=== PATIENT | male | born 1950 | race Caucasian/White ===

== ENCOUNTER → 2017-06-10 | Outpatient (CLI) | payer MEDICARE, OTHER ==
--- NOTE | 2017-06-10 10:10 | RADIOLOGY REPORT (SQ) ---
EXAM DESCRIPTION: DAVID SWALLOW COMPLETED DATE/TIME: 06/10/2017 8:33 am REASON FOR STUDY: DYSPHAGIA (R13.10) R13.10 DYSPHAGIA, UNSPECIFIED COMPARISON: None. TECHNIQUE: Videofluoroscopic swallowing examination was performed in conjunction with speech patholo gy. Videofluoroscopic imaging was obtained and reviewed and these are the findings: RADIATION DOSE: Fluoro time 2.25 minutes 1 images saved to PACS. LIMITATIONS: None FINDINGS: The patient was brought into the fluoro room and placed upright on a modified barium swall ow chair. The patient was then given multiple consistencies mixed with barium to swallow under live fluoroscopic video guidance. According to the Speech Pathologist there was deep laryngeal penetratio n with eventual aspiration identified with thin, nectar thick and pureed consistencies. There is a l ack of epiglottic inversion noted throughout the study. Please refer to the speech pathology report f or further details. IMPRESSION: ASPIRATION SEEN WITH THIN, NECTAR AND PUREED CONSISTENCIES.PLEASE SEE SPEECH PATHOLOGIST REPORT FOR OTHER FINDINGS AND RECOMMENDATIONS. COMMENT: NONE Quality ID 145: Final reports for procedures using fluoroscopy that document radiation exposure saulo gracie, or exposure time and number of fluorographic images (if radiation exposure indices are not avail able) TECHNICAL DOCUMENTATION: JOB ID: [id number] [employer]- All Rights Reserved
--- NOTE | 2017-06-11 12:02 | ST Modified Barium Swallow ---
Recommendation - Recommendations Recommendations: Patient may need alternative means of nutrition/hydration. Discussed possible need for PEG placement with patient and family. Recommend outpatient speech therapy evaluation and treatment for pharyngeal dysphagia. Recommend GI consult due to reduced UES opening. Recommend neurology consult. Medical Diagnoses - Medical Diagnoses Medical Diagnosis Description & ICD-10 Code(s): dysphagia R13.10 Other Medical Diagnoses/Co-Morbidities: Patient's spouse reports history of TIAs , colon cancer in 2013, esophageal dilation 2016. ST Modified Barium Swallow - General Date: 06/10/17 Referring Physician: Dr. Morataya Risks/Precautions: Aspiration - History History obtained from: Patient, Spouse -: Medical - Patient's was present and acted as primary historian. Reports that the patient had a fall in September of 2016, which resulted in some cognitive changes. also reports getting a flu/virus in January of 2017, and swallowing deficits were noted after that time. Patient reportedly is demonstrating significant coughing with solids specifically. He is currently on a puree solids and thin liquids. Patient has lost 20 pounds over last 6 months. Esophageal abnormalities were reported in physician paperwork, patient reports a dilation in January of 2017. also reports having 4 biopsies taken, no results known at this time, unable to state what biopsies were for. Medications: Patient reports baby aspirin Allergies: none reported - Functional Status Prior Functional Status: INDEPENDENT: feeding - independent Current Functional Limitations: feeding - modified diet - Subjective Patient/caregiver goal(s): better swallow, safe swallow Cognitive-Linguistic Function: Moderately Impaired Speech Intelligibility: WNL Current Nutritional Means: PO Current PO diet: Pureed Current symptoms: Weight loss, Coughing Pain: Patient reports, 0/5 - Objective Assessment: Upright, Left Lateral - Food Trials Used Food trials used: Thin liquids, [place] thick liquids, Pureed The patient: Was Able to Self Feed - Oral-Motor Skills Dentition: Full Laryngeal Function: Volitional Cough - WFL, Volitional Swallow - WFL - Assessment Oral prep: Normal Labial closure: Adequate Leakage: None Mastication: no chewing observed Lingual Movement: Normal Oral stage: Normal for this Procedure - Pharyngeal Stage Initiation of Pharyngeal Stage Reflex: Normal Decreased laryngeal elevation: Yes Reduced Velopharyngeal Closure: no Reduced pressure generation: Yes reduced tongue-based retraction: No Pre-swallow pooling in valleculae: None Pre-Swallow pooling in pyriforms: Moderate Reduced Thyro-Hyoid approximation: Yes Reduced epiglottic excursion: Yes - no epiglottic inversion seen Multiple Swallows with: Ineffective Clearance - piecemeal swallowing seen Post-swallow residulas vallecular: Mild Post-Swallow residuals in pyriforms: Significant Pharyngeal Stage Comments: Patient did not demonstrate epiglottic inversion, resulting in reduced airway protection. Liquids were seen to enter airway during the swallow, and pyriform sinus residue of solids seen to enter airway after the swallow. No cough reflex noted. Required multiple swallows to clear residue, however, only very small amounts of residue was seen to pass upper esophageal sphincter with each swallow. - Esophageal Stage Upper Esophageal Transit: Impaired - inadequate opening of UES, resulting in significant residue in pyriform sinus. Small amounts of residue able to pass with each swallow. - Fall Risk Assessment Medications/Conditions that increase fall risks include: Antidepressants, sedatives, anti-arrhythmic, diuretic, benzodiazipenes, neuroleptics. BP regulation problems, cardiac problems, balance or gait deficits, neurological problems. Fall Risk Actions Taken: No action needed - Behavioral Observations During evaluation process patient: was pleasant, was cooperative - Treatment / Educational Needs: Treatment/Education Needs: Treatment consisted of patient education on the role of the Speech Pathologist. Patient's plan of care and golas were communicated as well as scheduling and attendance policies. Recommendations for initial home program were shared. Patient demonstrated understanding and verbalized agreement. Initial home program recommendations: Discussed outpatient treatment with patient and spouse at evaluation to try to increase swallow function. Also discussed the possible need for a feeding tube due to presence of aspiration and significant weight loss. Safest diet is the one the patient is currently on (thin liquids and puree solids), however, patient is still aspirating these textures. - Impression/Summary Consistency: Thin, [place], Pudding Tracheal Aspiration: yes, deep, silent, during swallow - with thin liquids, after swallow - with puree and thickened liquids Effective Clearing: partial clearing Patient presents with: Pharyngeal stage dysph., Esophageal stage dysph., Severe Risk of Aspiration: Severe Risk of nutritional compromise: Severe Evaluation and Findings: Patient presents with severely impaired pharyngeal phase swallow characterized by absent epiglottic inversion and silent aspiration of all trial consistencies. Esophageal dysphagia also present characterized by reduced UES opening, resulting in significant pyriform sinus residue. Aspiration seen of all trial textures (thin, nectar, puree). Recommend outpatient dysphagia evaluation and treatment to address pharyngeal deficits. Recommend GI consult due to limited UES opening. Recommend neurology consult due to possible neurological component. - Recommendations NPO: yes Solid diet recommendations: Pureed - for pleasure feeds and therapeutic trials Liquid Diet Modification: Thin - for pleasure feeds and therapeutic trials Strict aspiration precautions: Yes Pt/Family education and followup with MD: Yes Dysphagia therapy with INSTRUMENT MAKER APPRENTICE: dysphagia therapy Reflux Precautions: Taught to Patient, Taught to Family Recommended techniques: Fully Upright During Meal, Small Bites and Sips Information, Precautions and Recommendations: Patient (Written), Patient (Verbal ), Family Member (Written), Family Member (Verbal) - Time Total Time: 30 - Plan of Care Patient to follow-up with referring physician: Yes Rehab potential for established goals: Fair POC Procedures/Codes: therapeutic trials, NMES, laryngeal exercises - for improved elevation, pt/family education, esophageal exercises - for improved UES opening, MBSS ([id number]) Strategies to optimize patient understanding include:: ongoing assessment of educational needs, implementation of educational strategies, and re-education. - - -: Thank you for the opportunity to work with this patient and his/her family. Should you have any questions about this patient's plan or progress, I can be reached at [phone]. Charge G Code? - - -: Yes ST F.L. Impairment Category - Rationale Based On Rationale Based On: Func. Asses. Tool Results - Swallowing Current G8996: CL 60-79% Impaired Goal G8997: CJ 20-39% Impaired
== END ==
LOC: RAD 07:31
PROVIDERS: ATTEND Student in an Organized Health Care Education/Training Program
DX: R13.10 Dysphagia, unspecified (principal); R63.4 Abnormal weight loss
CPT/HCPCS: 74230; 92611; G8996; G8997

== ENCOUNTER → 2017-08-19 | Outpatient (CLI) | payer MEDICARE, OTHER ==
--- NOTE | 2017-08-19 09:19 | RADIOLOGY REPORT (SQ) ---
EXAM DESCRIPTION: COOKIE SWALLOW COMPLETED DATE/TIME: 08/19/2017 8:28 am REASON FOR STUDY: DYSPHAGIA (R13.10) FOOD IN PHARYNX CAUSING OTHER INJURY, SEQUELA T17.228S R13.10 DYSPHAGIA, UNSPECIFIED COMPARISON: Cookie swallow 06/10/2017 TECHNIQUE: Videofluoroscopic swallowing examination was performed in conjunction with speech patholo gy. Videofluoroscopic imaging was obtained and reviewed and these are the findings: RADIATION DOSE: Total fluoroscopy time: 1 minutes 56 seconds 1 fluoroscopy image saved to PACS. LIMITATIONS: None FINDINGS: The patient was brought into the fluoro room and placed upright on a modified barium swall ow chair. The patient was then given multiple consistencies mixed with barium to swallow under live fluoroscopic video guidance. According to the Speech Pathologist there was deep laryngeal penetratio n with thin liquids. No tracheal aspiration. No significant delay in oral or pharyngeal transit. N o significant post swallow residuals. Please see speech pathology report for further details and rec ommendations. IMPRESSION: DEEP LARYNGEAL PENETRATION THIN LIQUIDS. NO TRACHEAL ASPIRATION. THERE HAS BEEN SIGNIF ICANT IMPROVEMENT SINCE PRIOR STUDY.PLEASE SEE SPEECH PATHOLOGIST REPORT FOR OTHER FINDINGS AND RECOM MENDATIONS. COMMENT: Quality ID 145: Final reports for procedures using fluoroscopy that document radiation exp osure indices, or exposure time and number of fluorographic images (if radiation exposure indices are not available) TECHNICAL DOCUMENTATION: JOB ID: [id number] [employer]- All Rights Reserved Reading location - IP/workstation name: [email or web address]
--- NOTE | 2017-08-19 11:06 | ST Modified Barium Swallow ---
Recommendation - Recommendations Recommendations: Continue outpatient dysphagia treatment. Improvement in dysphagia seen. Patient safe for small sips of thin liquids with supra-glottic swallow, and limited trials of puree foods. Medical Diagnoses - Medical Diagnoses Medical Diagnosis Description & ICD-10 Code(s): dysphagia R13.10 Other Medical Diagnoses/Co-Morbidities: Patient's spouse reports history of TIAs , colon cancer in 2013, esophageal dilation 2016. ST Modified Barium Swallow - General Date: 08/19/17 Referring Physician: Dr. Broussard Risks/Precautions: Aspiration Reason for Referral: follow up to assess progress of treatment - History History obtained from: Patient, Spouse -: Medical - This patient was previously seen for a MBSS on 06/11/17. At that time the patient's was present and acted as primary historian. Reports that the patient had a fall in September of 2016, which resulted in some cognitive changes. also reports getting a flu/virus in January of 2017, and swallowing deficits were noted after that time. He is currently receiving PEG feeds with limited PO intake. Mr. Powell is being seen for outpatient dysphagia treatment 3x per week since the initial swallow study, and has been given home exercise program to address dysphagia symptoms. 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 Medications: Patient reports baby aspirin Allergies: none reported - Functional Status Prior Functional Status: INDEPENDENT: feeding - independnet Current Functional Limitations: feeding - PEG dependent - Subjective Patient/caregiver goal(s): better swallow, other - monitor progress Cognitive-Linguistic Function: Mildly Impaired Speech Intelligibility: Mildly dysarthric Current Nutritional Means: PEG Current PO diet: N/A (NPO) - thin liquid pleasure feeds Current symptoms: Weight loss, Coughing, Aspiration Pain: Patient reports, 0/5 - Objective Assessment: Upright, Left Lateral - Food Trials Used Food trials used: Thin liquids, Pureed The patient: Was Able to Self Feed, via cup, via spoon - Oral-Motor Skills Dentition: Full - Assessment Oral prep: Normal Labial closure: Adequate Leakage: None Mastication: no chewing observed Lingual Movement: Normal Oral stage: Normal for this Procedure - Pharyngeal Stage Initiation of Pharyngeal Stage Reflex: Normal Decreased laryngeal elevation: No Reduced Velopharyngeal Closure: no Reduced pressure generation: Yes reduced tongue-based retraction: No Pre-swallow pooling in valleculae: Mild Pre-Swallow pooling in pyriforms: Mild Reduced Thyro-Hyoid approximation: No Reduced epiglottic excursion: Yes Reduced pharyngeal peristalsis/contraction: Yes Multiple Swallows with: Effective - required up to 4 swallows to clear residue Post-swallow residulas vallecular: Mild Post-Swallow residuals in pyriforms: Mild Pharyngeal Stage Comments: Improved function from last study. Patient demonstrated good laryngeal elevation , and some improved epiglottic inversion, although still impaired. No aspiration seen, although deep penetration was seen for thin liquids during the swallow. Penetration of residue on puree trials from pyriform sinus also seen, but cleared with throat clear. Patient still required multiple swallows to clear material from pyriform sinus, however, improved clearance from last study. Reduced inferior pharyngeal constriction seen, contributing to reduced clearing of pyriform sinus. - Esophageal Stage Cricopharyngeal Function: Impaired - Fall Risk Assessment Medications/Conditions that increase fall risks include: Antidepressants, sedatives, anti-arrhythmic, diuretic, benzodiazipenes, neuroleptics. BP regulation problems, cardiac problems, balance or gait deficits, neurological problems. Fall Risk Actions Taken: No action needed - Behavioral Observations During evaluation process patient: was pleasant, was cooperative - Treatment / Educational Needs: Treatment/Education Needs: Treatment consisted of patient education on the role of the Speech Pathologist. Patient's plan of care and golas were communicated as well as scheduling and attendance policies. Recommendations for initial home program were shared. Patient demonstrated understanding and verbalized agreement. Initial home program recommendations: Patient to continue with previously established HEP, including pharyngeal exercises and swallowing strategies. Patient may now have small sips of thin liquids and pleasure feeds of puree solids utilizing safe swallowing strategies. Patient to continue with outpatient dysphagia treatment. - Impression/Summary Laryngeal Penetration: Yes, Deep, during swallow, after swallow - from residue in pyriform sinus Consistency: Thin, Pud[place] Tracheal Aspiration: no Productive cough: Yes - with verbal cue Effective Clearing: yes Effective compensatory strategies: chin down, throat clear & reswallow, hard swallow, supraglottic swallow Patient presents with: Pharyngeal stage dysph., Severe Risk of Aspiration: Moderate Risk of nutritional compromise: None - PEG Evaluation and Findings: Patient continues to have moderate to severe pharyngeal dysphagia characterized by reduced epiglottic inversion and reduced pharyngeal constriction. This resulted in deep penetration during and after the swallow, and reduced clearing of pyriform sinus. However, function is improved from previous study as no aspiration was seen and improved movement of pharyngeal structures was seen. - Recommendations NPO: therapeutic trials Solid diet recommendations: Pureed - for pleasure feeds Liquid Diet Modification: Thin - for pleasure feeds Strict aspiration precautions: Yes Pt/Family education and followup with MD: Yes Dysphagia therapy with USED CAR SALESPERSON: yes, f/u with current thera. Recommended techniques: Fully Upright During Meal, Dry Swallow After Bite, Chin Tuck to Swallow Information, Precautions and Recommendations: Patient (Written), Patient (Verbal ), Family Member (Written), Family Member (Verbal) - Time Total Time: 20 - Plan of Care Patient to follow-up with referring physician: Yes Strategies to optimize patient understanding include:: ongoing assessment of educational needs, implementation of educational strategies, and re-education. - - -: Thank you for the opportunity to work with this patient and his/her family. Should you have any questions about this patient's plan or progress, I can be reached at [phone]. Charge G Code? - - -: Yes ST Garcia Impairment Category - Swallowing Current G8996: CM 80-99% Impaired - from initial evaluation Goal G8997: CK 40-59% Impaired
== END ==
LOC: RAD 07:31
PROVIDERS: ATTEND Internal Medicine Gastroenterology
DX: R13.10 Dysphagia, unspecified (principal); R13.11 Dysphagia, oral phase; R13.12 Dysphagia, oropharyngeal phase; R13.13 Dysphagia, pharyngeal phase; R13.14 Dysphagia, pharyngoesophageal phase; R47.1 Dysarthria and anarthria; R47.81 Slurred speech
CPT/HCPCS: 74230

== ENCOUNTER 2018-01-08 16:32 | Emergency (ER) | payer MEDICARE, OTHER ==
[2018-01-08] MEDS ORDERED: LIDOCAINE 2% URO-JET 5 ML KIT MM ONE (17:46)
--- NOTE | 2018-01-08 19:19 | ER Document Report ---
ED General - General Chief Complaint: Other Stated Complaint: PEG TUBE NEEDS REPLACEMENT Time Seen by Provider: 01/08/18 17:45 TRAVEL OUTSIDE OF THE [place] IN LAST 30 DAYS: No - HPI Patient complains to provider of: PEG tube malfunction Notes: Patient was seen earlier at the [facility] has a size 20 [place] PEG tube unfortunately the [facility] did not have the correct size therefore place a Davies catheter Davies catheter would not work with any of the PEG tube to supplies at the at home for the patient therefore brought the patient in [facility] for further evaluation. Patient otherwise has no other complaints - Related Data Allergies/Adverse Reactions: No Known Allergies Allergy (Verified 01/08/18 16:53) Past Medical History - Social History Smoking Status: Former Smoker Family History: Reviewed & Not Pertinent Patient has suicidal ideation: No Patient has homicidal ideation: No Pulmonary Medical History: Denies: Hx Tuberculosis Neurological Medical History: Denies: Hx Seizures Renal/ Medical History: Denies: Hx Peritoneal Dialysis Psychiatric Medical History: Denies: Hx Depression Past Surgical History: Reports: Hx Abdominal Surgery - PEG tube placed, Hx Bowel Surgery - Colon CA removal - Immunizations Hx Pneumococcal Vaccination: 10/08/12 Review of Systems - Review of Systems Constitutional: No symptoms reported EENT: No symptoms reported Cardiovascular: No symptoms reported Respiratory: No symptoms reported Gastrointestinal: Other - PEG tube malfunction Genitourinary: No symptoms reported Male Genitourinary: No symptoms reported Musculoskeletal: No symptoms reported Skin: No symptoms reported Hematologic/Lymphatic: No symptoms reported Neurological/Psychological: No symptoms reported Physical Exam - Vital signs Vitals: Temp Pulse Resp BP Pulse Ox 97.8 F 80 16 110/95 H 100 01/08/18 17:02 01/08/18 17:02 01/08/18 17:02 01/08/18 17:02 01/08/18 17:02 Interpretation: Normal - General General appearance: Appears well, Alert - HEENT Head: Normocephalic, Atraumatic Eyes: Normal Pupils: PERRL - Respiratory Respiratory status: No respiratory distress Chest status: Nontender Breath sounds: Normal Chest palpation: Normal - Cardiovascular Rhythm: Regular Heart sounds: Normal auscultation Murmur: No - Abdominal Inspection: Normal Distension: No distension Bowel sounds: Normal Tenderness: Nontender Organomegaly: No organomegaly Notes: Patient with a ostomy with a Davies catheter currently in it site looks well dressed no signs of infection purulent drainage - Back Back: Normal, Nontender - Extremities General upper extremity: Normal inspection, Nontender, Normal color, Normal ROM , Normal temperature General lower extremity: Normal inspection, Nontender, Normal color, Normal ROM , Normal temperature, Normal weight bearing. No: Fausto's sign - Neurological Neuro grossly intact: Yes Cognition: Normal Orientation: AAOx4 Ya Coma Scale Eye Opening: Spontaneous [place] Coma Scale Verbal: Oriented Ya Coma Scale Motor: Obeys Commands Ya Coma Scale Total: 15 Speech: Normal Motor strength normal: LUE, RUE, LLE, RLE Sensory: Normal - Psychological Associated symptoms: Normal affect, Normal mood - Skin Skin Temperature: Warm Skin Moisture: Dry Skin Color: Normal Course - Re-evaluation Re-evalutation: 01/08/18 20:08 Dressing was removed from the Davies catheter approximately 15 cc of water were removed from the Davies catheter this was pulled out with a 20 Kyr[place]z PEG tube placed KUB confirmed PEG tube placement patient was discharged home. - Vital Signs Vital signs: Temp Pulse Resp BP Pulse Ox 97.8 F 80 16 110/95 H 100 01/08/18 17:02 01/08/18 17:02 01/08/18 17:02 01/08/18 17:02 01/08/18 17:02 Procedures - Additional Procedures peg Additional Procedures: Gastric tube replacement Discharge - Discharge Clinical Impression: PEG tube malfunction Condition: Good Disposition: HOME, SELF-CARE Additional Instructions: X-ray of the abdomen shows PEG tube is in place. Please continue to use the PEG tube follow-up with your doctor as needed Referrals: BOB STOLL MD [Primary Care Provider] - Follow up as needed
--- NOTE | 2018-01-08 19:20 | RADIOLOGY REPORT (SQ) ---
EXAM DESCRIPTION: KUB/ABDOMEN (SINGLE VIEW) COMPLETED DATE/TIME: 01/08/2018 6:51 pm REASON FOR STUDY: Confirm PEG with Gastrografin COMPARISON: Abdominal films 10/20/2013 NUMBER OF VIEWS: One view. TECHNIQUE: Supine radiographic image of the abdomen acquired, after the patient's gastrostomy tube was injected with half strength Gastrografin. LIMITATIONS: None. FINDINGS: BOWEL GAS PATTERN: Normal bowel gas pattern. No dilated loops. CALCIFICATIONS: No suspicious calcifications. SOFT TISSUES: No gross mass or suggestion of organomegaly. HARDWARE: The gastrostomy tube is present with the tip in the gastric antrum. Contrast fills the sto mach. BONES: No acute fracture. No worrisome bone lesions. OTHER: Left upper quadrant embolization coils are present, unchanged from 10/20/2013. IMPRESSION: Gastrostomy tube tip in the stomach. Otherwise unremarkable bowel gas pattern. Results called to Dr. Benitez TECHNICAL DOCUMENTATION: JOB ID: [id number] [employer]- All Rights Reserved Reading location - IP/workstation name: [email or web address]
[2018-01-08 20:08] VITALS: BP 128/93
== END 2018-01-08 20:07 | disposition home or self-care (01) ==
LOC: ER 16:32
PROC: 0D20XUZ Change Feeding Device in Upper Intestinal Tract, External Approach (ICD-10-PCS; principal; 2018-01-08)
DX: K94.23 Gastrostomy malfunction (principal); Z87.891 Personal history of nicotine dependence
CPT/HCPCS: 74018; 99283